=== PATIENT | female | born 1965 | race African-American/Black ===

== ENCOUNTER → 2017-01-11 | Outpatient (CLI) | payer BC ==
[~2017-01-11] MED LIST: ATOR20TA PO; CANA300T PO; FERR-63 PO; FISH1CAP2 PO; LIRA0.6P SQ
[2017-01-11 08:29] LABS: ALBUMIN 3.8 g/dL (3.4-5.0); ANION GAP 11; CALCIUM 8.9 mg/dL (8.5-10.1); CARBON DIOXIDE 30 mEq/L (21-32); CHLORIDE 105 mEq/L (98-107); INDEX HEMOLYSI 1 (1-3); INDEX ICTERIC 1 (1-4); INDEX LIPEMIC 1 (1-3); PHOSPHORUS 2.7 mg/dL (2.5-4.9); T4 FREE 0.81 ng/dL (0.76-1.46); UREA NITROGEN BLOOD 13 mg/dL (7-21); eGFR > 60 mL/min (>60)
[2017-01-11 08:32] LABS: T3 FREE 2.61 pg/ml (2.18-3.98)
== END | disposition home or self-care (01) ==
LOC: LAB 07:39
PROVIDERS: ATTEND Internal Medicine
DX: E11.65 Type 2 diabetes mellitus with hyperglycemia (principal); R94.4 Abnormal results of kidney function studies; R94.6 Abnormal results of thyroid function studies
CPT/HCPCS: 36415; 80069; 82947; 83036; 84439; 84443; 84481

== ENCOUNTER → 2017-01-18 | Outpatient (CLI) | payer BC | END | disposition home or self-care (01) | LOC: MAMMO 07:37 | PROVIDERS: ATTEND Internal Medicine | DX: Z12.31 Encounter for screening mammogram for malignant neoplasm of breast (principal) | CPT/HCPCS: G0202 ==

== ENCOUNTER → 2017-05-03 | Outpatient (CLI) | payer BC ==
[2017-05-03 07:20] LABS: BASOPHILS % 1.1 % (0.0-2.0); EOSINOPHILS % 4.9 % (0.0-5.0); HEMATOCRIT. 39.1 % (36.0-48.0); HEMOGLOBIN. 12.7 g/dL (12.0-16.0); LYMPHOCYTES % 37.4 % (20.0-50.0); MEAN CORPUSCULAR HEMOGLOBIN 26.1 pg (28.0-32.0); MEAN CORPUSCULAR VOLUME 80.6 fL (81.0-99.0); MEAN PLATELET VOLUME 7.6 fl (7.4-10.4); MONOCYTES % 9.5 % (2.0-8.0); NEUTROPHILS % 47.1 % (40.0-76.0); PLATELET 239 x1000/uL (130-400); RED BLOOD CELL COUNT 4.85 mill/uL (4.2-5.4); RED CELL DISTRIBUTION WIDTH 15.1 % (11.6-14.6)
[2017-05-03 07:53] LABS: CARBON DIOXIDE 29 mEq/L (21-32); CHLORIDE 101 mEq/L (98-107); T4 FREE 0.85 ng/dL (0.76-1.46)
[2017-05-04 17:47] LABS: *CREATININE RANDOM URINE 102.2 mg/dL (Not Estab.); MICROALBUMIN RANDOM URINE <3.0 ug/mL (Not Estab.); MICROALBUMIN/CREATININE RATIO <2.9 mg/g creat (0.0-30.0)
== END | disposition home or self-care (01) ==
LOC: LAB 07:01
PROVIDERS: ATTEND Internal Medicine Endocrinology, Diabetes & Metabolism
DX: E11.9 Type 2 diabetes mellitus without complications (principal); E78.5 Hyperlipidemia, unspecified; E04.1 Nontoxic single thyroid nodule
CPT/HCPCS: 36415; 80053; 82043; 82570; 83036; 84439; 84443; 85025

== ENCOUNTER → 2017-08-08 | Outpatient (CLI) | payer BC ==
[2017-08-08 08:06] LABS: BASOPHILS % 0.3 % (0.0-2.0); EOSINOPHILS % 4.4 % (0.0-5.0); HEMATOCRIT. 38.3 % (36.0-48.0); HEMOGLOBIN. 12.3 g/dL (12.0-16.0); LYMPHOCYTES % 32.5 % (20.0-50.0); MEAN CORPUSCULAR HEMOGLOBIN 25.9 pg (28.0-32.0); MEAN CORPUSCULAR VOLUME 80.6 fL (81.0-99.0); MEAN PLATELET VOLUME 7.8 fl (7.4-10.4); MONOCYTES % 9.7 % (2.0-8.0); NEUTROPHILS % 53.1 % (40.0-76.0); PLATELET 219 x1000/uL (130-400); RED BLOOD CELL COUNT 4.75 mill/uL (4.2-5.4); RED CELL DISTRIBUTION WIDTH 15.2 % (11.6-14.6)
[2017-08-08 08:31] LABS: CARBON DIOXIDE 25 mEq/L (21-32); CHLORIDE 106 mEq/L (98-107); HDL CHOLESTEROL 65 mg/dL (40-59); LDL CHOLESTEROL 93 mg/dL (5-100)
[2017-08-09 14:23] LABS: ANTI-THYROGLOBULIN AB < 1 IU/mL (0.0-0.9)
== END | disposition home or self-care (01) ==
LOC: LAB 06:35
PROVIDERS: ATTEND Internal Medicine Endocrinology, Diabetes & Metabolism
DX: E11.9 Type 2 diabetes mellitus without complications (principal); E78.5 Hyperlipidemia, unspecified; E04.1 Nontoxic single thyroid nodule; D35.2 Benign neoplasm of pituitary gland
CPT/HCPCS: 36415; 80053; 80061; 82533; 83036; 84146; 84439; 84443; 85025; 86800

== ENCOUNTER → 2017-10-25 | Outpatient (CLI) | payer BC ==
[2017-10-25 08:01] LABS: BASOPHILS % 0.4 % (0.0-2.0); EOSINOPHILS % 4.5 % (0.0-5.0); HEMATOCRIT. 39.5 % (36.0-48.0); HEMOGLOBIN. 12.8 g/dL (12.0-16.0); LYMPHOCYTES % 33.6 % (20.0-50.0); MEAN CORPUSCULAR HEMOGLOBIN 26.1 pg (28.0-32.0); MEAN CORPUSCULAR VOLUME 80.5 fL (81.0-99.0); MEAN PLATELET VOLUME 7.5 fl (7.4-10.4); MONOCYTES % 8.8 % (2.0-8.0); NEUTROPHILS % 52.7 % (40.0-76.0); PLATELET 256 x1000/uL (130-400); RED BLOOD CELL COUNT 4.91 mill/uL (4.2-5.4); RED CELL DISTRIBUTION WIDTH 14.8 % (11.6-14.6)
[2017-10-25 08:26] LABS: CHLORIDE 104 mEq/L (98-107)
[2017-10-25 08:39] LABS: CARBON DIOXIDE 28 mEq/L (21-32); HDL CHOLESTEROL 62 mg/dL (40-59); LDL CHOLESTEROL 116 mg/dL (5-100); T4 FREE 0.81 ng/dL (0.76-1.46)
== END | disposition home or self-care (01) ==
LOC: LAB 07:35
PROVIDERS: ATTEND Internal Medicine Endocrinology, Diabetes & Metabolism
DX: I10 Essential (primary) hypertension (principal); E78.5 Hyperlipidemia, unspecified; E04.1 Nontoxic single thyroid nodule
CPT/HCPCS: 36415; 80053; 80061; 82533; 83036; 84146; 84439; 84443; 85025

== ENCOUNTER → 2017-12-20 | Outpatient (CLI) | payer BC ==
[~2017-12-20] MED LIST changes: +GADOBENATE DIMEGLUMINE 529 MG/ML 10ML IV ONE
== END | disposition home or self-care (01) ==
LOC: MRI 07:38
PROVIDERS: ATTEND Internal Medicine Endocrinology, Diabetes & Metabolism
DX: D35.2 Benign neoplasm of pituitary gland (principal); E04.1 Nontoxic single thyroid nodule
CPT/HCPCS: 70553; 76536; A9577

== ENCOUNTER → 2018-02-19 | Outpatient (CLI) | payer BC ==
[~2018-02-19] MED LIST changes: -GADOBENATE DIMEGLUMINE 529 MG/ML 10ML IV ONE
[2018-02-19 07:57] LABS: EOSINOPHILS % 5.6 % (0.0-5.0); HEMATOCRIT. 40.8 % (36.0-48.0); HEMOGLOBIN. 13.3 g/dL (12.0-16.0); LYMPHOCYTES % 25.9 % (20.0-50.0); MEAN CORPUSCULAR HEMOGLOBIN 26.3 pg (28.0-32.0); MEAN CORPUSCULAR VOLUME 80.7 fL (81.0-99.0); MEAN PLATELET VOLUME 7.8 fl (7.4-10.4); MONOCYTES % 14.3 % (2.0-8.0); NEUTROPHILS % 53.2 % (40.0-76.0); PLATELET 253 x1000/uL (130-400); RED BLOOD CELL COUNT 5.05 mill/uL (4.2-5.4); RED CELL DISTRIBUTION WIDTH 14.9 % (11.6-14.6)
[2018-02-19 08:59] LABS: CHLORIDE 105 mEq/L (98-107)
[2018-02-19 09:09] LABS: LDL CHOLESTEROL 81 mg/dL (5-100); T4 FREE 0.81 ng/dL (0.76-1.46)
[2018-02-19 09:10] LABS: HDL CHOLESTEROL 62 mg/dL (40-59)
[2018-02-19 09:35] LABS: VITAMIN B12 SERUM 528 pg/mL (211-911)
[2018-02-20 09:07] LABS: VITAMIN D 25-OH 29.9 ng/mL (30.0-100.0)
== END | disposition home or self-care (01) ==
LOC: LAB 05:12
PROVIDERS: ATTEND Internal Medicine Endocrinology, Diabetes & Metabolism
DX: E11.40 Type 2 diabetes mellitus with diabetic neuropathy, unspecified (principal); E78.00 Pure hypercholesterolemia, unspecified; E04.1 Nontoxic single thyroid nodule; E78.5 Hyperlipidemia, unspecified; I10 Essential (primary) hypertension; R79.89 Other specified abnormal findings of blood chemistry
CPT/HCPCS: 36415; 80053; 80061; 82306; 82607; 83036; 84439; 84443; 85025

== ENCOUNTER → 2018-06-19 | Outpatient (CLI) | payer BC ==
[2018-06-19 08:24] LABS: BASOPHILS % 0.8 % (0.0-2.0); EOSINOPHILS % 3.3 % (0.0-5.0); HEMATOCRIT. 40.8 % (36.0-48.0); HEMOGLOBIN. 13.3 g/dL (12.0-16.0); LYMPHOCYTES % 40.4 % (20.0-50.0); MEAN CORPUSCULAR HEMOGLOBIN 26.2 pg (28.0-32.0); MEAN CORPUSCULAR VOLUME 80.6 fL (81.0-99.0); MEAN PLATELET VOLUME 7.6 fl (7.4-10.4); MONOCYTES % 8.3 % (2.0-8.0); NEUTROPHILS % 47.2 % (40.0-76.0); PLATELET 276 x1000/uL (130-400); RED BLOOD CELL COUNT 5.06 mill/uL (4.2-5.4); RED CELL DISTRIBUTION WIDTH 15.8 % (11.6-14.6)
[2018-06-19 10:00] LABS: CHLORIDE 103 mEq/L (98-107)
[2018-06-19 10:11] LABS: LDL CHOLESTEROL 99 mg/dL (5-100)
[2018-06-19 10:13] LABS: HDL CHOLESTEROL 53 mg/dL (40-59); T4 FREE 0.86 ng/dL (0.76-1.46)
[2018-06-20 09:06] LABS: PROLACTIN 17.7 ng/mL (4.8-23.3)
== END | disposition home or self-care (01) ==
LOC: LAB 07:40
PROVIDERS: ATTEND Internal Medicine Endocrinology, Diabetes & Metabolism
DX: I10 Essential (primary) hypertension (principal); E11.9 Type 2 diabetes mellitus without complications; E78.5 Hyperlipidemia, unspecified; E04.1 Nontoxic single thyroid nodule; Z79.899 Other long term (current) drug therapy
CPT/HCPCS: 36415; 80053; 80061; 82306; 83036; 84146; 84439; 84443; 85025; 86800

== ENCOUNTER → 2018-11-28 | Outpatient (CLI) | payer BC ==
[2018-11-28 08:08] LABS: BASOPHILS % 1.2 % (0.0-2.0); EOSINOPHILS % 4.2 % (0.0-5.0); HEMATOCRIT. 39.8 % (36.0-48.0); HEMOGLOBIN. 12.4 g/dL (12.0-16.0); LYMPHOCYTES % 36.2 % (20.0-50.0); MEAN CORPUSCULAR HEMOGLOBIN 25.5 pg (28.0-32.0); MEAN CORPUSCULAR VOLUME 81.6 fL (81.0-99.0); MEAN PLATELET VOLUME 7.7 fl (7.4-10.4); MONOCYTES % 8.2 % (2.0-8.0); NEUTROPHILS % 50.2 % (40.0-76.0); PLATELET 242 x1000/uL (130-400); RED BLOOD CELL COUNT 4.87 mill/uL (4.2-5.4); RED CELL DISTRIBUTION WIDTH 15.2 % (11.6-14.6)
[2018-11-28 08:15] LABS: CHLORIDE 106 mEq/L (98-107)
[2018-11-28 08:21] LABS: LDL CHOLESTEROL 103 mg/dL (5-100)
[2018-11-28 08:23] LABS: HDL CHOLESTEROL 59 mg/dL (40-59); T4 FREE 0.78 ng/dL (0.76-1.46)
== END | disposition home or self-care (01) ==
LOC: LAB 06:24
PROVIDERS: ATTEND Internal Medicine Endocrinology, Diabetes & Metabolism
DX: E55.9 Vitamin D deficiency, unspecified (principal); E11.9 Type 2 diabetes mellitus without complications; I10 Essential (primary) hypertension; E04.1 Nontoxic single thyroid nodule
CPT/HCPCS: 36415; 80061; 82306; 83036; 84439; 84443

== ENCOUNTER → 2019-01-08 | Day surgery (SDC) | payer BC ==
[~2019-01-08] MED LIST changes: +LIDOCAINE HCL 1% 20ML VIAL (Pyxis) INJ ONE; +SODIUM BICARBONATE 4% (2.4MEQ) 5ML VIAL IV ONE
== END | disposition home or self-care (01) ==
LOC: RAD 07:47
PROVIDERS: ATTEND Internal Medicine Endocrinology, Diabetes & Metabolism
DX: E04.1 Nontoxic single thyroid nodule (principal)
CPT/HCPCS: 10005; 88172; 88173; J3490

== ENCOUNTER → 2019-04-01 | Outpatient (CLI) | payer BC ==
[~2019-04-01] MED LIST changes: -LIDOCAINE HCL 1% 20ML VIAL (Pyxis) INJ ONE; -SODIUM BICARBONATE 4% (2.4MEQ) 5ML VIAL IV ONE
[2019-04-01 08:11] LABS: BASOPHILS % 1.4 % (0.0-2.0); EOSINOPHILS % 4.6 % (0.0-5.0); HEMATOCRIT. 41.7 % (36.0-48.0); HEMOGLOBIN. 13.4 g/dL (12.0-16.0); LYMPHOCYTES % 32.2 % (20.0-50.0); MEAN CORPUSCULAR HEMOGLOBIN 25.7 pg (28.0-32.0); MEAN CORPUSCULAR VOLUME 80.1 fL (81.0-99.0); MEAN PLATELET VOLUME 7.7 fl (7.4-10.4); MONOCYTES % 8.8 % (2.0-8.0); PLATELET 267 x1000/uL (130-400); RED CELL DISTRIBUTION WIDTH 15.3 % (11.6-14.6)
[2019-04-01 08:45] LABS: CHLORIDE 104 mEq/L (98-107)
[2019-04-01 08:52] LABS: LDL CHOLESTEROL 113 mg/dL (5-100)
[2019-04-01 08:54] LABS: HDL CHOLESTEROL 59 mg/dL (40-59); T4 FREE 0.86 ng/dL (0.76-1.46)
[2019-04-02 09:08] LABS: *CREATININE RANDOM URINE 199.2 mg/dL (Not Estab.)
== END | disposition home or self-care (01) ==
LOC: LABT 06:51
PROVIDERS: ATTEND Internal Medicine Endocrinology, Diabetes & Metabolism
DX: E55.9 Vitamin D deficiency, unspecified (principal); E11.9 Type 2 diabetes mellitus without complications; E04.1 Nontoxic single thyroid nodule; E78.5 Hyperlipidemia, unspecified
CPT/HCPCS: 36415; 80061; 82043; 82306; 82570; 83036; 84439; 84443

== ENCOUNTER → 2019-04-09 | Outpatient (CLI) | payer BC | END | disposition home or self-care (01) | LOC: RAD 09:25 | PROVIDERS: ATTEND Podiatrist Foot & Ankle Surgery | DX: M77.32 Calcaneal spur, left foot (principal) | CPT/HCPCS: 73630 ==

== ENCOUNTER → 2019-05-06 | Outpatient (CLI) | payer BC | END | disposition home or self-care (01) | LOC: CARD 07:42 | PROVIDERS: ATTEND Specialist | DX: R94.31 Abnormal electrocardiogram [ECG] [EKG] (principal); I51.7 Cardiomegaly; I50.1 Left ventricular failure, unspecified | CPT/HCPCS: 93306 ==

== ENCOUNTER → 2019-07-09 | Outpatient (CLI) | payer BC ==
[2019-07-09 11:57] LABS: BASOPHILS % 0.9 % (0.0-2.0); EOSINOPHILS % 4.9 % (0.0-5.0); HEMATOCRIT. 41.4 % (36.0-48.0); HEMOGLOBIN. 13.4 g/dL (12.0-16.0); LYMPHOCYTES % 33.4 % (20.0-50.0); MEAN CORPUSCULAR HEMOGLOBIN 26.2 pg (28.0-32.0); MEAN CORPUSCULAR VOLUME 81.1 fL (81.0-99.0); NEUTROPHILS % 50.8 % (40.0-76.0); PLATELET 235 x1000/uL (130-400); RED CELL DISTRIBUTION WIDTH 15.5 % (11.6-14.6)
[2019-07-09 12:05] LABS: CHLORIDE 105 mEq/L (98-107)
[2019-07-09 12:15] LABS: HDL CHOLESTEROL 54 mg/dL (40-59); LDL CHOLESTEROL 105 mg/dL (5-100)
[2019-07-10 08:07] LABS: *CREATININE RANDOM URINE 77.5 mg/dL (Not Estab.); MICROALBUMIN RANDOM URINE <3.0 ug/mL (Not Estab.)
[2019-07-11 17:11] LABS: THYROXINE BINDING GLOBULIN 17 ug/mL (13-39)
== END | disposition home or self-care (01) ==
LOC: LAB 11:23
PROVIDERS: ATTEND Internal Medicine Endocrinology, Diabetes & Metabolism
DX: E11.9 Type 2 diabetes mellitus without complications (principal); E78.5 Hyperlipidemia, unspecified; I10 Essential (primary) hypertension; E04.1 Nontoxic single thyroid nodule
CPT/HCPCS: 36415; 80061; 82043; 82570; 83036; 84439; 84442; 84443; 86735; 86800; 87340

== ENCOUNTER → 2019-07-16 | Outpatient (CLI) | payer BC | END | disposition home or self-care (01) | LOC: US 06:53 | PROVIDERS: ATTEND Internal Medicine Endocrinology, Diabetes & Metabolism | DX: E04.1 Nontoxic single thyroid nodule (principal) | CPT/HCPCS: 76536 ==

== ENCOUNTER → 2019-10-08 | Outpatient (CLI) | payer BC | END | disposition home or self-care (01) | LOC: MRI 04:40 | PROVIDERS: ATTEND Internal Medicine | DX: M17.11 Unilateral primary osteoarthritis, right knee (principal); M25.761 Osteophyte, right knee; M94.261 Chondromalacia, right knee; M25.462 Effusion, left knee; M25.461 Effusion, right knee | CPT/HCPCS: 73721 ==

== ENCOUNTER → 2019-11-18 | Outpatient (CLI) | payer BC ==
[2019-11-18 08:07] LABS: BASOPHILS % 0.9 % (0.0-2.0); EOSINOPHILS % 2.7 % (0.0-5.0); HEMATOCRIT. 40.7 % (36.0-48.0); HEMOGLOBIN. 13.3 g/dL (12.0-16.0); MEAN CORPUSCULAR VOLUME 79.5 fL (81.0-99.0); MONOCYTES % 9.5 % (2.0-8.0); NEUTROPHILS % 42.9 % (40.0-76.0); PLATELET 258 x1000/uL (130-400); RED BLOOD CELL COUNT 5.11 mill/uL (4.2-5.4); RED CELL DISTRIBUTION WIDTH 15.3 % (11.6-14.6)
[2019-11-18 08:28] LABS: CHLORIDE 102 mEq/L (98-107)
[2019-11-18 08:38] LABS: LDL CHOLESTEROL 124 mg/dL (5-100)
[2019-11-18 08:39] LABS: T4 FREE 0.96 ng/dL (0.76-1.46)
[2019-11-18 08:40] LABS: HDL CHOLESTEROL 60 mg/dL (40-59)
[2019-11-18 08:44] LABS: CLARITY URINE CLEAR (CLEAR); COLOR URINE YELLOW (YELLOW); KETONES URINE NEGATIVE (NEGATIVE); LEUKOCYTE ESTERASE URINE NEGATIVE (NEGATIVE); NITRITE URINE NEGATIVE (NEGATIVE); OCCULT BLOOD URINE NEGATIVE (NEGATIVE); PROTEIN URINE NEGATIVE (NEGATIVE); SPECIFIC GRAVITY URINE 1.041 (1.005-1.030); UROBILINOGEN URINE 0.2 E.U./dL (0.2-1.0)
[2019-11-19 10:17] LABS: *CREATININE RANDOM URINE 171.2 mg/dL (Not Estab.); MICROALBUMIN RANDOM URINE 4.8 ug/mL (Not Estab.)
== END | disposition home or self-care (01) ==
LOC: LAB 05:14
PROVIDERS: ATTEND Internal Medicine Endocrinology, Diabetes & Metabolism
DX: I10 Essential (primary) hypertension (principal); E11.9 Type 2 diabetes mellitus without complications; E04.1 Nontoxic single thyroid nodule; R82.998 Other abnormal findings in urine
CPT/HCPCS: 36415; 80053; 80061; 81003; 82043; 82306; 82533; 82570; 83036; 84439; 84443; 85025

== ENCOUNTER → 2019-11-20 | Day surgery (SDC) | payer BC ==
[~2019-11-20] MED LIST changes: +LIDOCAINE HCL 1% 20ML VIAL (Pyxis) INJ ONE; +SODIUM BICARBONATE 4% (2.4MEQ) 5ML VIAL IV ONE
== END | disposition home or self-care (01) ==
LOC: RAD 05:03
PROVIDERS: ATTEND Internal Medicine Endocrinology, Diabetes & Metabolism
DX: E04.1 Nontoxic single thyroid nodule (principal); E07.89 Other specified disorders of thyroid; Z79.899 Other long term (current) drug therapy
CPT/HCPCS: 10005; 88172; 88173; J3490

== ENCOUNTER → 2019-12-18 | Outpatient (CLI) | payer BC ==
[~2019-12-18] MED LIST changes: -LIDOCAINE HCL 1% 20ML VIAL (Pyxis) INJ ONE; -SODIUM BICARBONATE 4% (2.4MEQ) 5ML VIAL IV ONE
== END | disposition home or self-care (01) ==
LOC: CARD 12-17 07:36
PROVIDERS: ATTEND Specialist
DX: Q25.0 Patent ductus arteriosus (principal)
CPT/HCPCS: 93306

== ENCOUNTER → 2020-01-07 | Outpatient (CLI) | payer BC ==
[2020-01-07 08:18] LABS: CLARITY URINE CLEAR (CLEAR); COLOR URINE YELLOW (YELLOW); KETONES URINE NEGATIVE (NEGATIVE); LEUKOCYTE ESTERASE URINE NEGATIVE (NEGATIVE); NITRITE URINE NEGATIVE (NEGATIVE); OCCULT BLOOD URINE NEGATIVE (NEGATIVE); PH URINE 5.5 (4.5-8.0); PROTEIN URINE NEGATIVE (NEGATIVE); SPECIFIC GRAVITY URINE 1.036 (1.005-1.030); UROBILINOGEN URINE 0.2 E.U./dL (0.2-1.0)
== END | disposition home or self-care (01) ==
LOC: LAB 05:16
PROVIDERS: ATTEND Internal Medicine
DX: N39.0 Urinary tract infection, site not specified (principal)
CPT/HCPCS: 81003

== ENCOUNTER → 2020-02-19 | Outpatient (CLI) | payer BC ==
[2020-02-19 09:19] LABS: CHLORIDE 105 mEq/L (98-107)
[2020-02-19 09:25] LABS: LDL CHOLESTEROL 107 mg/dL (5-100)
[2020-02-19 09:27] LABS: HDL CHOLESTEROL 61 mg/dL (40-59); T4 FREE 0.95 ng/dL (0.76-1.46)
[2020-02-20 09:06] LABS: VITAMIN D 25-OH 32.6 ng/mL (30.0-100.0)
== END | disposition home or self-care (01) ==
LOC: LAB 07:57
PROVIDERS: ATTEND Internal Medicine Endocrinology, Diabetes & Metabolism
DX: I10 Essential (primary) hypertension (principal); E11.9 Type 2 diabetes mellitus without complications; E04.1 Nontoxic single thyroid nodule
CPT/HCPCS: 36415; 80053; 80061; 82306; 83036; 84439; 84443; 86800

== ENCOUNTER → 2020-05-19 | Outpatient (CLI) | payer BC ==
[2020-05-19 07:38] LABS: BASOPHILS % 1.1 % (0.0-2.0); EOSINOPHILS % 4.3 % (0.0-5.0); HEMATOCRIT. 40.8 % (36.0-48.0); HEMOGLOBIN. 13.2 g/dL (12.0-16.0); LYMPHOCYTES % 36.3 % (20.0-50.0); MEAN CORPUSCULAR HEMOGLOBIN 26.7 pg (28.0-32.0); MEAN CORPUSCULAR VOLUME 82.4 fL (81.0-99.0); NEUTROPHILS % 51.3 % (40.0-76.0); PLATELET 243 x1000/uL (130-400); RED BLOOD CELL COUNT 4.95 mill/uL (4.2-5.4); RED CELL DISTRIBUTION WIDTH 14.8 % (11.6-14.6)
[2020-05-19 07:42] LABS: CHLORIDE 103 mEq/L (98-107)
[2020-05-19 07:48] LABS: LDL CHOLESTEROL 110 mg/dL (5-100)
[2020-05-19 07:49] LABS: HDL CHOLESTEROL 50 mg/dL (40-59); TOTAL IRON BINDING CAPACITY 292 ug/dL (250-450)
[2020-05-19 07:51] LABS: T4 FREE 1.02 ng/dL (0.76-1.46)
[2020-05-19 08:04] LABS: FOLIC ACID (FOLATE) SERUM >20 ng/mL ng/mL (>5.38)
[2020-05-19 08:12] LABS: CLARITY URINE CLEAR (CLEAR); COLOR URINE YELLOW (YELLOW); KETONES URINE TRACE (NEGATIVE); LEUKOCYTE ESTERASE URINE NEGATIVE (NEGATIVE); NITRITE URINE NEGATIVE (NEGATIVE); OCCULT BLOOD URINE NEGATIVE (NEGATIVE); PROTEIN URINE NEGATIVE (NEGATIVE); SPECIFIC GRAVITY URINE 1.041 (1.005-1.030); UROBILINOGEN URINE 0.2 E.U./dL (0.2-1.0)
[2020-05-19 08:15] LABS: VITAMIN B12 SERUM 537 pg/mL (211-911)
[2020-05-20 08:10] LABS: MICROALBUMIN RANDOM URINE <3.0 ug/mL (Not Estab.)
[2020-05-24 05:08] LABS: METHYLMALONIC ACID 120 nmol/L (0-378)
== END | disposition home or self-care (01) ==
LOC: LAB 06:55
PROVIDERS: ATTEND Internal Medicine Endocrinology, Diabetes & Metabolism
DX: N04.1 Nephrotic syndrome with focal and segmental glomerular lesions (principal); E11.9 Type 2 diabetes mellitus without complications; D64.9 Anemia, unspecified; E78.5 Hyperlipidemia, unspecified
CPT/HCPCS: 36415; 80053; 80061; 81003; 82043; 82570; 82607; 82746; 83036; 83540; 83550; 83921; 84439; 84443; 85025; 86800

== ENCOUNTER → 2020-08-16 | Outpatient (CLI) | payer BC ==
[2020-08-16 08:56] LABS: BASOPHILS % 1.2 % (0.0-2.0); HEMATOCRIT. 40.5 % (36.0-48.0); LYMPHOCYTES % 38.3 % (20.0-50.0); MEAN CORPUSCULAR HEMOGLOBIN 26.4 pg (28.0-32.0); MEAN CORPUSCULAR VOLUME 82.1 fL (81.0-99.0); MEAN PLATELET VOLUME 8.1 fl (7.4-10.4); MONOCYTES % 7.3 % (2.0-8.0); NEUTROPHILS % 49.2 % (40.0-76.0); PLATELET 269 x1000/uL (130-400); RED BLOOD CELL COUNT 4.93 mill/uL (4.2-5.4); RED CELL DISTRIBUTION WIDTH 14.4 % (11.6-14.6)
[2020-08-16 09:26] LABS: CHLORIDE 105 mEq/L (98-107)
[2020-08-16 09:30] LABS: LDL CHOLESTEROL 112 mg/dL (5-100)
[2020-08-16 09:32] LABS: HDL CHOLESTEROL 62 mg/dL (40-59)
[2020-08-16 09:34] LABS: TOTAL IRON BINDING CAPACITY 310 ug/dL (250-450)
[2020-08-16 09:36] LABS: T4 FREE 0.91 ng/dL (0.76-1.46)
== END | disposition home or self-care (01) ==
LOC: LAB 07:53
PROVIDERS: ATTEND Internal Medicine Endocrinology, Diabetes & Metabolism
DX: E11.9 Type 2 diabetes mellitus without complications (principal); E78.5 Hyperlipidemia, unspecified; D64.9 Anemia, unspecified; E04.1 Nontoxic single thyroid nodule
CPT/HCPCS: 36415; 80053; 80061; 82728; 83036; 83540; 83550; 84439; 84443; 85025; 86800

== ENCOUNTER → 2020-08-16 | Outpatient (CLI) | payer BC ==
[2020-08-16 09:03] LABS: CLARITY URINE CLEAR (CLEAR); COLOR URINE YELLOW (YELLOW); KETONES URINE NEGATIVE (NEGATIVE); LEUKOCYTE ESTERASE URINE NEGATIVE (NEGATIVE); NITRITE URINE NEGATIVE (NEGATIVE); OCCULT BLOOD URINE NEGATIVE (NEGATIVE); PROTEIN URINE NEGATIVE (NEGATIVE); SPECIFIC GRAVITY URINE 1.029 (1.005-1.030); UROBILINOGEN URINE 0.2 E.U./dL (0.2-1.0)
[2020-08-16 09:31] LABS: C REACTIVE PROTEIN QUANT 4.7 mg/L (0.0-3.0); PHOSPHORUS 3.1 mg/dL (2.5-4.9)
[2020-08-16 11:57] LABS: CORTISOL 6.7 ucg/dL; TRIOIODOTHYRONINE TOTAL 1.47 ng/ml (0.60-1.81)
[2020-08-16 12:09] LABS: HEPATITIS B SURFACE ANTIGEN NEGATIVE
[2020-08-16 12:38] LABS: HEPATITIS A AB IGM NEGATIVE (NEGATIVE)
[2020-08-17 09:10] LABS: FOLICLE STIMULATING HORMONE 53.1 mIU/mL (.); LUTEINIZING HORMONE 36.6 mIU/mL (.); PROGESTERONE 0.2 ng/mL (.); TRANSFERRIN 246 mg/dL (192-364); VITAMIN D 25-OH 43.8 ng/mL (30.0-100.0)
== END | disposition home or self-care (01) ==
LOC: LAB 07:48
PROVIDERS: ATTEND Internal Medicine
DX: Z00.00 Encounter for general adult medical examination without abnormal findings (principal); R87.1 Abnormal level of hormones in specimens from female genital organs; N95.9 Unspecified menopausal and perimenopausal disorder; D64.9 Anemia, unspecified; E78.00 Pure hypercholesterolemia, unspecified; I10 Essential (primary) hypertension; N39.0 Urinary tract infection, site not specified; R94.6 Abnormal results of thyroid function studies; R60.9 Edema, unspecified; R94.5 Abnormal results of liver function studies; E55.9 Vitamin D deficiency, unspecified; D68.9 Coagulation defect, unspecified; R10.9 Unspecified abdominal pain
CPT/HCPCS: 36415; 80076; 81003; 82024; 82306; 82533; 82626; 83001; 83002; 84100; 84144; 84403; 84436; 84466; 84480; 84481; 84550; 85651; 86140; 86677; 86705; 86709; 86803; 87340

== ENCOUNTER → 2021-03-02 | Outpatient (CLI) | payer BC ==
[2021-03-02 08:00] LABS: BASOPHILS % 1.1 % (0.0-2.0); CHLORIDE 104 mEq/L (98-107); EOSINOPHILS % 2.7 % (0.0-5.0); HEMATOCRIT. 39.9 % (36.0-48.0); MEAN CORPUSCULAR HEMOGLOBIN 26.1 pg (28.0-32.0); MEAN CORPUSCULAR VOLUME 80.3 fL (81.0-99.0); MEAN PLATELET VOLUME 8.2 fl (7.4-10.4); MONOCYTES % 7.9 % (2.0-8.0); NEUTROPHILS % 50.3 % (40.0-76.0); PLATELET 246 x1000/uL (130-400); RED BLOOD CELL COUNT 4.96 mill/uL (4.2-5.4); RED CELL DISTRIBUTION WIDTH 14.2 % (11.6-14.6)
[2021-03-02 08:06] LABS: LDL CHOLESTEROL 92 mg/dL (5-100)
[2021-03-02 08:08] LABS: TOTAL IRON BINDING CAPACITY 303 ug/dL (250-450)
[2021-03-02 08:11] LABS: HDL CHOLESTEROL 59 mg/dL (40-59); T4 FREE 0.95 ng/dL (0.76-1.46)
[2021-03-02 09:04] LABS: FOLIC ACID (FOLATE) SERUM >20 ng/mL ng/mL (>5.38)
[2021-03-02 09:11] LABS: FERRITIN 67 ng/mL (10-291)
[2021-03-02 09:16] LABS: VITAMIN B12 SERUM 491 pg/mL (211-911)
[2021-03-03 07:08] LABS: *CREATININE RANDOM URINE 338.9 mg/dL (Not Estab.); MICROALBUMIN RANDOM URINE 18.4 ug/mL (Not Estab.)
== END | disposition home or self-care (01) ==
LOC: LAB 06:22
PROVIDERS: ATTEND Internal Medicine Endocrinology, Diabetes & Metabolism
DX: E11.9 Type 2 diabetes mellitus without complications (principal); D64.9 Anemia, unspecified; E78.5 Hyperlipidemia, unspecified; E04.1 Nontoxic single thyroid nodule
CPT/HCPCS: 36415; 80053; 80061; 82043; 82570; 82607; 82728; 82746; 83036; 83540; 83550; 83921; 84439; 84443; 85025; 86800

== ENCOUNTER → 2021-04-06 | Outpatient (CLI) | payer BC | END | disposition home or self-care (01) | LOC: US 07:40 | PROVIDERS: ATTEND Internal Medicine Endocrinology, Diabetes & Metabolism | DX: E04.2 Nontoxic multinodular goiter (principal); E04.8 Other specified nontoxic goiter | CPT/HCPCS: 76536 ==

== ENCOUNTER → 2021-06-16 | Outpatient (CLI) | payer BC | END | disposition home or self-care (01) | LOC: MAMMO 07:31 | PROVIDERS: ATTEND Internal Medicine | DX: Z12.31 Encounter for screening mammogram for malignant neoplasm of breast (principal); N64.89 Other specified disorders of breast | CPT/HCPCS: 77067 ==

== ENCOUNTER → 2021-08-04 | Outpatient (CLI) | payer BC ==
[2021-08-04 08:09] LABS: BASOPHILS % 0.9 % (0.0-2.0); EOSINOPHILS % 4.7 % (0.0-5.0); HEMATOCRIT. 39.2 % (36.0-48.0); HEMOGLOBIN. 12.5 g/dL (12.0-16.0); LYMPHOCYTES % 41.6 % (20.0-50.0); MEAN CORPUSCULAR HEMOGLOBIN 26.1 pg (28.0-32.0); MEAN CORPUSCULAR VOLUME 81.7 fL (81.0-99.0); MEAN PLATELET VOLUME 7.9 fl (7.4-10.4); MONOCYTES % 9.8 % (2.0-8.0); PLATELET 263 x1000/uL (130-400); RED CELL DISTRIBUTION WIDTH 15.9 % (11.6-14.6)
[2021-08-04 09:11] LABS: CHLORIDE 104 mEq/L (98-107)
[2021-08-04 09:37] LABS: T4 FREE 0.79 ng/dL (0.76-1.46)
[2021-08-04 09:38] LABS: LDL CHOLESTEROL 105 mg/dL (5-100)
[2021-08-04 09:39] LABS: HDL CHOLESTEROL 60 mg/dL (40-59)
[2021-08-05 07:07] LABS: MICROALBUMIN RANDOM URINE <3.0 ug/mL (Not Estab.)
== END | disposition home or self-care (01) ==
LOC: LAB 04:19
PROVIDERS: ATTEND Internal Medicine Endocrinology, Diabetes & Metabolism
DX: E04.1 Nontoxic single thyroid nodule (principal); E11.9 Type 2 diabetes mellitus without complications; E78.00 Pure hypercholesterolemia, unspecified; I10 Essential (primary) hypertension
CPT/HCPCS: 36415; 80053; 80061; 82043; 82306; 82570; 83036; 84439; 84443; 85025

== ENCOUNTER → 2021-09-28 | Outpatient (CLI) | payer BC ==
[2021-09-28 08:23] LABS: BASOPHILS % 1.5 % (0.0-2.0); EOSINOPHILS % 3.1 % (0.0-5.0); HEMATOCRIT. 36.5 % (36.0-48.0); HEMOGLOBIN. 11.8 g/dL (12.0-16.0); LYMPHOCYTES % 33.5 % (20.0-50.0); MEAN CORPUSCULAR HEMOGLOBIN 26.3 pg (28.0-32.0); MEAN PLATELET VOLUME 7.7 fl (7.4-10.4); MONOCYTES % 8.4 % (2.0-8.0); NEUTROPHILS % 53.5 % (40.0-76.0); PLATELET 260 x1000/uL (130-400); RED BLOOD CELL COUNT 4.51 mill/uL (4.2-5.4); RED CELL DISTRIBUTION WIDTH 14.9 % (11.6-14.6)
[2021-09-28 08:39] LABS: CHLORIDE 104 mEq/L (98-107)
[2021-09-28 08:48] LABS: LDL CHOLESTEROL 132 mg/dL (5-100)
[2021-09-28 08:49] LABS: HDL CHOLESTEROL 55 mg/dL (40-59)
[2021-09-30 09:06] LABS: VITAMIN D 25-OH 31.6 ng/mL (30.0-100.0)
== END | disposition home or self-care (01) ==
LOC: LAB 07:48
PROVIDERS: ATTEND Internal Medicine Endocrinology, Diabetes & Metabolism
DX: E11.9 Type 2 diabetes mellitus without complications (principal); I10 Essential (primary) hypertension; E55.9 Vitamin D deficiency, unspecified; E78.00 Pure hypercholesterolemia, unspecified
CPT/HCPCS: 36415; 80053; 80061; 82306; 83036; 84439; 84443; 85025; 86800

== ENCOUNTER → 2021-11-15 | Outpatient (CLI) | payer BC | END | disposition home or self-care (01) | LOC: US 07:55 | PROVIDERS: ATTEND Internal Medicine Endocrinology, Diabetes & Metabolism | DX: E04.2 Nontoxic multinodular goiter (principal) | CPT/HCPCS: 76536 ==